=== PATIENT | male | born 1975 | race Caucasian/White ===

== ENCOUNTER 2024-11-12 06:51 | Emergency (ER) | payer MEDICAID ==
[~2024-11-12] VITALS: Ht 182.9 cm; Wt 96.0 kg
[2024-11-12 06:56] VITALS: O2SAT 100
[2024-11-12] MEDS ORDERED: CELE100C MT (07:34)
[2024-11-12] MEDS ORDERED: PSEU120T56 MT (07:34)
[2024-11-12] MEDS: PSEUDOEPHEDRINE HCL 30MG TABLET PO STA (07:51)
[2024-11-12] MEDS: KETOROLAC 30MG/ML VIAL IM STA (07:51)
[2024-11-12 07:56] VITALS: BP 132/98; PULSE 90; RESP 18; TEMP 36.7; O2SAT 100
== END 2024-11-12 07:57 | disposition home or self-care (01) ==
LOC: ER 07:05
DX: J06.9 Acute upper respiratory infection, unspecified (principal); Z79.1 Long term (current) use of non-steroidal anti-inflammatories (NSAID); Z79.899 Other long term (current) drug therapy
CPT/HCPCS: 96372; 99283; J1885; Z7610

== ENCOUNTER 2025-01-03 22:02 | Emergency (ER) | payer MEDICAID, OTHER ==
[~2025-01-03] VITALS: Ht 182.9 cm; Wt 99.5 kg
[~2025-01-03 22:02] MED LIST: CELE100C MT; PSEU120T56 MT
[2025-01-03 22:04] VITALS: O2SAT 100
[2025-01-03 22:23] VITALS: BP 154/95; PULSE 80; RESP 16; TEMP 36.8; O2SAT 99
[2025-01-03 22:55] LABS: HEMATOCRIT. 37.6 % (42.0-52.0); HEMOGLOBIN. 12.4 g/dL (14.0-18.0); MEAN PLATELET VOLUME 7.4 fl (7.4-10.4); PLATELET 206 x1000/uL (130-400); RED BLOOD CELL COUNT 3.92 mill/uL (4.7-6.1); RED CELL DISTRIBUTION WIDTH 13.3 % (11.6-14.6)
[2025-01-03 23:05] LABS: CREATININE 0.8 mg/dL (0.6-1.3); UREA NITROGEN BLOOD 14 mg/dL (9-23)
[2025-01-03 23:06] LABS: TROPONIN I HIGH SENSITIVITY 17 ng/L (3.0-53)
[2025-01-03 23:34] LABS: EOSINOPHILS % MANUAL 3.0 % (0.0-5.0); LYMPHOCYTES % MANUAL 21.0 % (20.0-50.0); MONOCYTES % MANUAL 16.0 % (2.0-8.0); NEUTROPHILS % MANUAL 60.0 % (45.0-75.0); PLATELET ESTIMATE NORMAL
[2025-01-04] MEDS ORDERED: AMLO5TAB88 MT (00:45)
== END 2025-01-04 01:10 | disposition home or self-care (01) ==
LOC: ER 22:02
DX: I10 Essential (primary) hypertension (principal)
CPT/HCPCS: 36415; 80048; 84484; 85025; 93005; 99284